=== PATIENT | female | born 1945 | race Caucasian/White ===

== ENCOUNTER → 2016-06-06 | Outpatient (CLI) | payer OTHER ==
[~2016-06-06] MED LIST: ACET-1757 PO; ACET650T17 PO; ACYC-113 PO; AMLO10TA2 PO; AMLO5TAB4 PO; ASCO10004 PO; ASPI-515 PO; ASPI325T4 PO; BORT3.5V INJ; BORT3.5V SQ; BUDE10.2 INH; CALC200T3 PO; CALC500T PO; CEFD300C2 PO; CHOL2000 PO; CHOL200024 PO; CHOL4PAC2 PO; CINA30TA PO; CYAN250T5 PO; CYTOXAN PO; DEXA10PO2 PO; DEXA4TAB PO; DIAZ5TAB PO; DIPH25CA61 PO; DOCU100C8 PO; EPOGEN SC; FOLI-17 PO; FURO-92 PO; GLUC500T8 PO; HYDR-3138 PO; HYDR1TAB12 PO; LENA5CAP PO; LISI-167 PO; METO50TA82 PO; MULT-6 PO; MULT1CAP19 PO; OXYC-302 PO; PROM12.55 PO; SODI113P PO; TRAM50TA2 PO; VANC125C2 PO; WARF10TA6 PO; [UNRECOGNIZED DRUG - CODE] IV; [UNRECOGNIZED DRUG - CODE] SQ; [UNRECOGNIZED DRUG - OTHER] IV
== END | disposition home or self-care (01) ==
LOC: RAD 13:01
PROVIDERS: ATTEND Internal Medicine Hematology & Oncology
DX: J90 Pleural effusion, not elsewhere classified (principal); J98.11 Atelectasis
CPT/HCPCS: 71020

== ENCOUNTER → 2016-08-01 | Outpatient (CLI) | payer OTHER ==
[~2016-08-01] MED LIST changes: -CEFD300C2 PO; +CEFD300C37 PO
== END | disposition home or self-care (01) ==
LOC: RAD 15:43
PROVIDERS: ATTEND Internal Medicine Hematology & Oncology
DX: J90 Pleural effusion, not elsewhere classified (principal); C90.00 Multiple myeloma not having achieved remission
CPT/HCPCS: 71020

== ENCOUNTER → 2016-08-15 | Outpatient (CLI) | payer OTHER | END | disposition home or self-care (01) | LOC: RAD 09:54 | PROVIDERS: ATTEND Internal Medicine Hematology & Oncology | DX: J90 Pleural effusion, not elsewhere classified (principal); C90.00 Multiple myeloma not having achieved remission; N17.9 Acute kidney failure, unspecified; N39.0 Urinary tract infection, site not specified; R19.7 Diarrhea, unspecified | CPT/HCPCS: 71020 ==

== ENCOUNTER → 2016-08-29 | Outpatient (CLI) | payer OTHER | END | disposition home or self-care (01) | LOC: RAD 11:27 | PROVIDERS: ATTEND Internal Medicine Hematology & Oncology | DX: C90.00 Multiple myeloma not having achieved remission (principal); J90 Pleural effusion, not elsewhere classified; I51.7 Cardiomegaly; J81.1 Chronic pulmonary edema; R91.8 Other nonspecific abnormal finding of lung field; M47.892 Other spondylosis, cervical region; M47.894 Other spondylosis, thoracic region; M47.896 Other spondylosis, lumbar region | CPT/HCPCS: 77075 ==

== ENCOUNTER 2016-10-03 10:02 | Day surgery (SDC) | payer OTHER ==
[~2016-10-03] VITALS: Ht 162.6 cm; Wt 57.0 kg
[~2016-10-03 10:02] MED LIST changes: +ASPI325T17 PO; -ASPI325T4 PO; -CINA30TA PO; +CINA30TA2 PO; +DOCU100C33 PO; -DOCU100C8 PO; +GLUC500T11 PO; -GLUC500T8 PO; -HYDR-3138 PO; +HYDR-3237 PO
[2016-10-03] MEDS ORDERED: LACTATED RINGERS 1,000 ML IV SCH (10:19)
[2016-10-03 10:20] VITALS: BP 152/82
[2016-10-03] MEDS ORDERED: PLEASE ENTER HEIGHT AND WEIGHT MC SCH (11:00)
[2016-10-03] MEDS ORDERED: SODIUM CHLORIDE 0.9% 1,000 ML IV SCH (11:16)
[2016-10-03] MEDS ORDERED: WARF5TAB PO (11:24)
[2016-10-03] MEDS ORDERED: BLOOD PRESSURE MED (11:24)
[2016-10-03] MEDS ORDERED: DIGO125T PO (11:24)
[2016-10-03] MEDS ORDERED: DILT180C9 PO (11:24)
[2016-10-03] MEDS ORDERED: PROPOFOL 10 MG/ML, 20ML ONE (12:41)
[2016-10-03] MEDS ORDERED: LABETALOL 5MG/ML, 20ML IV PRN (13:30)
[2016-10-03] MEDS ORDERED: ONDANSETRON 2MG/ML, 2ML IVPush PRN (13:30)
[2016-10-03] MEDS ORDERED: HYDROcodone/APAP 7.5-325MG/15ML UDC PO PRN (13:30)
[2016-10-03] MEDS ORDERED: MEPERIDINE/PF 25MG/0.5ML IVPush PRN (13:30)
[2016-10-03] MEDS ORDERED: OXYcodone 5 MG/5 ML ORAL.SOL UDC PO PRN (13:30)
[2016-10-03] MEDS ORDERED: ACETAMINOPHEN 325 MG TABLET PO PRN (13:30)
[2016-10-03] MEDS ORDERED: hydrALAzine 20 MG/ML, 1ML IV PRN (13:30)
[2016-10-03] MEDS ORDERED: EPHEDRINE 50 MG/ML, 1ML IVPush PRN (13:30)
[2016-10-03] MEDS ORDERED: PROMETHAZINE 25 MG/ML, 1ML IV PRN (13:30)
[2016-10-03] MEDS ORDERED: HYDROmorphone 1 MG/ML, 1ML IV PRN (13:30)
[2016-10-03] MEDS ORDERED: MIDAZOLAM 1 MG/ML, 2ML IV PRN (13:30)
[2016-10-03] MEDS ORDERED: FENTANYL PF 100 MCG/2ML IV PRN (13:30)
== END 2016-10-03 15:00 ==
LOC: OUT 10:02
PROVIDERS: ATTEND Internal Medicine
DX: K29.70 Gastritis, unspecified, without bleeding (principal); K44.9 Diaphragmatic hernia without obstruction or gangrene; I10 Essential (primary) hypertension; I25.2 Old myocardial infarction; I12.0 Hypertensive chronic kidney disease with stage 5 chronic kidney disease or end stage renal disease; N18.5 Chronic kidney disease, stage 5; J44.9 Chronic obstructive pulmonary disease, unspecified; Z90.49 Acquired absence of other specified parts of digestive tract; Z98.890 Other specified postprocedural states; Z85.820 Personal history of malignant melanoma of skin; Z86.010 Personal history of colon polyps
CPT/HCPCS: 36415; 43239; 82330; 82803; 82947; 84132; 84295; 85014; 85610; 88305; 93005; J2704; J7030

== ENCOUNTER 2016-12-21 14:19 | Inpatient (IN) | payer OTHER ==
[~2016-12-21] VITALS: Ht 162.6 cm; Wt 54.7 kg
[~2016-12-21 14:19] MED LIST changes: +BLOOD PRESSURE MED; +DIGO125T PO; +DILT180C9 PO; +WARF5TAB PO
[2016-12-21] MEDS ORDERED: LIDOCAINE 1%, 2ML SQ PRN (15:00)
[2016-12-21 15:10] VITALS: BP 163/91
[2016-12-21] MEDS ORDERED: BUPIVACAINE/PF 0.5% ONE (15:11)
[2016-12-21] MEDS ORDERED: HEPARIN 1,000 UNITS/ML, 10ML ONE (15:12)
[2016-12-21] MEDS ORDERED: THROMBIN 5,000 UNIT VIAL TP ONE (15:12)
[2016-12-21] MEDS ORDERED: PROTAMINE SULFATE 10 MG/ML, 5ML ONE (15:12)
[2016-12-21] MEDS ORDERED: PLEASE ENTER HEIGHT AND WEIGHT MC SCH (15:30)
[2016-12-21] MEDS ORDERED: PLEASE ENTER ALLERGIES MC SCH ×2 (15:30)
[2016-12-21] MEDS ORDERED: FENTANYL PF 100 MCG/2ML ONE ×2 (15:33→17:30)
[2016-12-21 15:58] LABS: HEMATOCRIT 27.6 % (34.6-47.8); WHITE BLOOD COUNT 5.8 x10^3/uL (3.4-10)
[2016-12-21] MEDS ORDERED: OXYcodone 5 MG/5 ML ORAL.SOL UDC PO PRN (16:00)
[2016-12-21] MEDS ORDERED: HYDROcodone/APAP 7.5-325MG/15ML UDC PO PRN (16:00)
[2016-12-21] MEDS ORDERED: METOPROLOL 1 MG/ML, 5ML IV PRN (16:00)
[2016-12-21] MEDS ORDERED: LABETALOL 5MG/ML, 20ML IV PRN (16:00)
[2016-12-21] MEDS ORDERED: METOCLOPRAMIDE 5 MG/ML, 2ML IV PRN (16:00)
[2016-12-21] MEDS ORDERED: MEPERIDINE/PF 25MG/0.5ML IVPush PRN (16:00)
[2016-12-21] MEDS ORDERED: hydrALAzine 20 MG/ML, 1ML IV PRN (16:00)
[2016-12-21] MEDS ORDERED: FENTANYL PF 100 MCG/2ML IV PRN (16:00)
[2016-12-21] MEDS ORDERED: ONDANSETRON 2MG/ML, 2ML IVPush PRN (16:00)
[2016-12-21] MEDS ORDERED: ACETAMINOPHEN 325 MG TABLET PO PRN ×2 (16:00→18:00)
[2016-12-21] MEDS ORDERED: HYDROmorphone 1 MG/ML, 1ML IV PRN (16:00)
[2016-12-21] MEDS ORDERED: ALBUTEROL SULFATE 2.5 MG/3 ML NPPB PRN (16:00)
[2016-12-21] MEDS ORDERED: EPHEDRINE 50 MG/ML, 1ML IVPush PRN (16:00)
[2016-12-21] MEDS ORDERED: INSULIN SINGLE DOSE, ER SQ-INSULIN ONE (16:19)
[2016-12-21] MEDS ORDERED: LIDOCAINE/PF 1%, 30ML ONE ×2 (16:32→17:04)
[2016-12-21] MEDS ORDERED: CALCIUM CHLORIDE 10%, 10ML SYR ONE (16:35)
[2016-12-21] MEDS ORDERED: ACETAMINOPHEN 650 MG/20.3 ML UDC ONE (17:30)
[2016-12-21] MEDS ORDERED: hydrALAzine 20 MG/ML, 1ML ONE (17:30)
[2016-12-21] MEDS ORDERED: OXYcodone 5 MG/5 ML ORAL.SOL UDC ONE ×2 (17:30→17:39)
[2016-12-21] MEDS ORDERED: hydrALAzine 20 MG/ML, 1ML IVPush PRN (18:00)
[2016-12-21 18:50] VITALS: BP 132/77
[2016-12-21] MEDS ORDERED: DEXTROSE 50%, 50ML SYRINGE IVPush ONE (19:30)
[2016-12-21] MEDS ORDERED: INSULIN REGULAR 100 UNITS/ML, 3ML VIAL SQ-INSULIN ONE (19:30)
[2016-12-21] MEDS ORDERED: INSULIN REGULAR 100 UNITS/ML, 3ML VIAL IVPush ONE (20:00)
[2016-12-21] MEDS: HEPARIN 5,000 UNITS/ML, 1ML SQ SCH (20:33)
[2016-12-21] MEDS ORDERED: HYDROcodone/APAP 5/325 TABLET ONE (23:45)
[2016-12-21] MEDS: HYDROcodone/APAP 5/325 TABLET PO PRN (23:47)
[2016-12-22] MEDS ORDERED: LOPERAMIDE 2 MG CAPSULE PO ONE
[2016-12-22 00:05] VITALS: BP 120/73
[2016-12-22] MEDS: HEPARIN 5,000 UNITS/ML, 1ML SQ SCH ×2 (01:22→10:00)
[2016-12-22] MEDS ORDERED: HYDROcodone/APAP 5/325 TABLET ONE (05:10)
[2016-12-22] MEDS: HYDROcodone/APAP 5/325 TABLET PO PRN (05:14)
[2016-12-22 06:03] LABS: BLOOD UREA NITROGEN 46 mg/dL (7-18)
[2016-12-22 06:04] LABS: HEMATOCRIT 24.2 % (34.6-47.8); HEMOGLOBIN 8.1 g/dL (11.7-16.4); WHITE BLOOD COUNT 3.7 x10^3/uL (3.4-10)
[2016-12-22 06:42] LABS: HEP B SURF. AB < 3.1 mIU/mL (0.0-10.0)
[2016-12-22 07:32] VITALS: BP 127/71
[2016-12-22] MEDS ORDERED: DILTIAZEM CD 180 MG CAP.ER.24H PO SCH (09:00)
[2016-12-22] MEDS ORDERED: MULTIVITAMIN 1 TABLET PO SCH (09:00)
[2016-12-22] MEDS ORDERED: CYANOCOBALOMIN 100MCG TABLET PO SCH (09:00)
[2016-12-22] MEDS ORDERED: TEMPLATE NON-FORMULARY MED. (Glucosamine Hcl** 500 MG) PO SCH (09:00)
[2016-12-22] MEDS ORDERED: CHOLECALCIFEROL 1,000 UNIT TABLET PO SCH (09:00)
== END 2016-12-22 17:42 | disposition home or self-care (01) | DRG 314 ==
LOC: OR 14:19 → ORIP 17:52 → 4EST 19:08
PROVIDERS: ADMIT Internal Medicine; ATTEND Internal Medicine
PROC: B5181ZA Fluoroscopy of Superior Vena Cava using Low Osmolar Contrast, Guidance (ICD-10-PCS; 2016-12-21)
PROC: 0JH63XZ Insertion of Tunneled Vascular Access Device into Chest Subcutaneous Tissue and Fascia, Percutaneous Approach (ICD-10-PCS; 2016-12-21)
PROC: B548ZZA Ultrasonography of Superior Vena Cava, Guidance (ICD-10-PCS; 2016-12-21)
PROC: 5A1D70Z Performance of Urinary Filtration, Intermittent, Less than 6 Hours Per Day (ICD-10-PCS; 2016-12-21)
PROC: 02HV33Z Insertion of Infusion Device into Superior Vena Cava, Percutaneous Approach (ICD-10-PCS; principal; 2016-12-21 16:00)
PROC: 5A1D70Z Performance of Urinary Filtration, Intermittent, Less than 6 Hours Per Day (ICD-10-PCS; 2016-12-22)
DX: T82.510A Breakdown (mechanical) of surgically created arteriovenous fistula, initial encounter (principal); N18.6 End stage renal disease; I12.0 Hypertensive chronic kidney disease with stage 5 chronic kidney disease or end stage renal disease; C90.00 Multiple myeloma not having achieved remission; E87.5 Hyperkalemia; D68.69 Other thrombophilia; Z94.84 Stem cells transplant status; L03.114 Cellulitis of left upper limb; Y71.2 Prosthetic and other implants, materials and accessory cardiovascular devices associated with adverse incidents; G62.0 Drug-induced polyneuropathy; I48.91 Unspecified atrial fibrillation; D63.1 Anemia in chronic kidney disease; E55.9 Vitamin D deficiency, unspecified; I48.0 Paroxysmal atrial fibrillation; I80.8 Phlebitis and thrombophlebitis of other sites; J45.909 Unspecified asthma, uncomplicated; T45.1X5A Adverse effect of antineoplastic and immunosuppressive drugs, initial encounter; N25.0 Renal osteodystrophy; Z87.11 Personal history of peptic ulcer disease; Z87.01 Personal history of pneumonia (recurrent); Z93.3 Colostomy status; Z99.2 Dependence on renal dialysis
CPT/HCPCS: 36415; 76001; 80047; 80048; 85025; 86704; 86706; 87340; 93005; J1644; J1815; J2720; J3010; J3490; C1751

== ENCOUNTER 2017-01-29 09:56 | Day surgery (SDC) | payer OTHER ==
[~2017-01-29] VITALS: Ht 162.6 cm; Wt 58.0 kg
[2017-01-29 10:24] VITALS: BP 190/95
[2017-01-29] MEDS ORDERED: LORA10TA75 PO (10:36)
[2017-01-29] MEDS ORDERED: OMEPRAZOLE PO (10:36)
[2017-01-29] MEDS ORDERED: HYDR-3245 PO (10:36)
[2017-01-29] MEDS ORDERED: AMOX-291 PO (10:36)
[2017-01-29] MEDS ORDERED: DILT180C59 PO (10:36)
[2017-01-29] MEDS ORDERED: LIDOCAINE 2%, 20ML ONE (11:26)
[2017-01-29] MEDS ORDERED: NALOXONE 1 MG/ML, 2ML ONE (11:27)
[2017-01-29] MEDS ORDERED: NITROGLYCERIN 5 MG/ML, 10ML ONE (11:27)
[2017-01-29] MEDS ORDERED: HEPARIN 1,000 UNITS/ML, 10ML ONE (11:27)
[2017-01-29] MEDS ORDERED: FENTANYL PF 100 MCG/2ML ONE (11:27)
[2017-01-29] MEDS ORDERED: MIDAZOLAM 1 MG/ML, 5ML ONE ×2 (11:27)
[2017-01-29] MEDS ORDERED: PROTAMINE SULFATE 10 MG/ML, 25ML ONE (11:27)
[2017-01-29] MEDS ORDERED: FLUMAZENIL 0.1 MG/1 ML, 5ML ONE (11:27)
== END 2017-01-29 13:05 ==
LOC: OUT 09:56
PROVIDERS: ATTEND Surgery Vascular Surgery
DX: T82.590A Other mechanical complication of surgically created arteriovenous fistula, initial encounter (principal); Y83.8 Other surgical procedures as the cause of abnormal reaction of the patient, or of later complication, without mention of misadventure at the time of the procedure; Y92.89 Other specified places as the place of occurrence of the external cause; I10 Essential (primary) hypertension
CPT/HCPCS: 36415; 36901; 80047; 99156; 99157; C1769; C1894; J2250; J3010; J3490; J1644; J2720; J2310

== ENCOUNTER → 2017-02-27 | Outpatient (CLI) | payer OTHER ==
[~2017-02-27] MED LIST changes: +AMOX-291 PO; +DILT180C59 PO; +HYDR-3245 PO; +LORA10TA75 PO; +OMEPRAZOLE PO
== END | disposition home or self-care (01) ==
LOC: RAD 10:02
PROVIDERS: ATTEND Internal Medicine Hematology & Oncology
DX: C90.00 Multiple myeloma not having achieved remission (principal); J18.9 Pneumonia, unspecified organism
CPT/HCPCS: 71046

== ENCOUNTER 2017-03-19 07:05 | Day surgery (SDC) | payer OTHER ==
[~2017-03-19] VITALS: Ht 162.6 cm; Wt 56.0 kg
[2017-03-19 07:48] VITALS: BP 181/83
[2017-03-19] MEDS ORDERED: SODIUM CHLORIDE 0.9% 1,000 ML IV SCH (07:56)
[2017-03-19] MEDS ORDERED: OMEP-110 PO (07:56)
[2017-03-19] MEDS ORDERED: FENTANYL PF 100 MCG/2ML ONE ×2 (08:27→10:20)
[2017-03-19] MEDS ORDERED: MIDAZOLAM 1 MG/ML, 2ML ONE (08:27)
[2017-03-19] MEDS ORDERED: ONDANSETRON 2MG/ML, 2ML ONE (09:55)
[2017-03-19] MEDS ORDERED: DEXAMETHASONE 4 MG/ML, 1ML ONE (09:55)
[2017-03-19] MEDS ORDERED: CEFAZOLIN 1,000 MG ONE (09:55)
[2017-03-19] MEDS ORDERED: PROPOFOL 10 MG/ML, 20ML ONE (09:55)
[2017-03-19] MEDS ORDERED: HEPARIN 1,000 UNITS/ML, 10ML IV ONE (10:01)
[2017-03-19] MEDS ORDERED: ONDANSETRON 2MG/ML, 2ML IVPush PRN (10:30)
[2017-03-19] MEDS ORDERED: EPHEDRINE 50 MG/ML, 1ML IVPush PRN (10:30)
[2017-03-19] MEDS ORDERED: PROMETHAZINE 25 MG/ML, 1ML IV PRN (10:30)
[2017-03-19] MEDS ORDERED: MIDAZOLAM 1 MG/ML, 2ML IV PRN (10:30)
[2017-03-19] MEDS ORDERED: OXYcodone 5 MG/5 ML ORAL.SOL UDC PO PRN (10:30)
[2017-03-19] MEDS ORDERED: LABETALOL 5MG/ML, 20ML IV PRN (10:30)
[2017-03-19] MEDS ORDERED: METOPROLOL 1 MG/ML, 5ML IV PRN (10:30)
[2017-03-19] MEDS ORDERED: ALBUTEROL SULFATE 2.5 MG/3 ML NPPB PRN (10:30)
[2017-03-19] MEDS ORDERED: ACETAMINOPHEN 325 MG TABLET PO PRN (10:30)
[2017-03-19] MEDS ORDERED: hydrALAzine 20 MG/ML, 1ML IV PRN (10:30)
[2017-03-19] MEDS ORDERED: HYDROcodone/APAP 7.5-325MG/15ML UDC PO PRN (10:30)
[2017-03-19] MEDS: FENTANYL PF 100 MCG/2ML IV PRN ×2 (11:02→11:08)
[2017-03-19] MEDS: HYDROmorphone 1 MG/ML, 1ML IV PRN ×3 (11:13→11:46)
== END 2017-03-19 14:15 ==
LOC: OUT 07:05
PROVIDERS: ATTEND Surgery Vascular Surgery
DX: T82.590A Other mechanical complication of surgically created arteriovenous fistula, initial encounter (principal); I12.0 Hypertensive chronic kidney disease with stage 5 chronic kidney disease or end stage renal disease; N18.6 End stage renal disease; Y83.8 Other surgical procedures as the cause of abnormal reaction of the patient, or of later complication, without mention of misadventure at the time of the procedure; Y92.89 Other specified places as the place of occurrence of the external cause
CPT/HCPCS: 36415; 36832; 80047; J0690; J1100; J1170; J1644; J2250; J2405; J2704; J3010; J7030

== ENCOUNTER → 2017-03-20 | Outpatient (CLI) | payer OTHER ==
[~2017-03-20] MED LIST changes: +OMEP-110 PO
== END | disposition home or self-care (01) ==
LOC: CFH 08:38
PROVIDERS: ATTEND Internal Medicine Hematology & Oncology
DX: Z13.820 Encounter for screening for osteoporosis (principal); M81.0 Age-related osteoporosis without current pathological fracture; C90.00 Multiple myeloma not having achieved remission; Z99.2 Dependence on renal dialysis
CPT/HCPCS: 77080

== ENCOUNTER 2018-04-11 14:29 | Outpatient (CLI) | payer MEDICARE ==
[~2018-04-11 14:29] MED LIST changes: -HYDR1TAB12 PO; +HYDR1TAB13 PO; -VANC125C2 PO; +VANC125C3 PO
== END 2018-04-11 23:59 | disposition home or self-care (01) ==
LOC: CARD 14:29
PROVIDERS: ATTEND Nurse Practitioner Family
DX: C90.00 Multiple myeloma not having achieved remission (principal)
CPT/HCPCS: 94010; 94726; 94729

== ENCOUNTER → 2018-04-11 | Outpatient (CLI) | payer MEDICARE ==
[~2018-04-11] MED LIST changes: -AMLO10TA2 PO; +AMLO10TA8 PO; +WARF10TA43 PO; -WARF10TA6 PO
== END | disposition home or self-care (01) ==
LOC: RAD 14:32
PROVIDERS: ATTEND Internal Medicine Hematology & Oncology
DX: S42.201D Unspecified fracture of upper end of right humerus, subsequent encounter for fracture with routine healing (principal); J90 Pleural effusion, not elsewhere classified; C90.00 Multiple myeloma not having achieved remission; X58.XXXD Exposure to other specified factors, subsequent encounter
CPT/HCPCS: 77075